=== PATIENT | male | born 1975 | race Caucasian/White ===

== ENCOUNTER 2017-08-21 17:27 | Emergency (ER) | payer SELFPAY ==
[~2017-08-21] VITALS: Ht 182.9 cm; Wt 100.0 kg
[2017-08-21] MEDS ORDERED: SODIUM CHLOR 0.9% 1000 ML INJ 1,000 ML IV ONE (17:38)
[2017-08-21 17:41] VITALS: BP 125/79; PULSE 79; RESP 18; TEMP 97.6; O2SAT 95; O2SAT 96
[2017-08-21] MEDS ORDERED: SODIUM CHLORIDE 0.9% FLUSH 10 ML FLUSH IVF PRN (17:45)
--- NOTE | 2017-08-21 18:03 | PD ---
HPI Chief Complaint: Syncope/Near-Syncope Time Seen by Provider: 17:37 Travel History International Travel<30 days: No Contact w/Intl Traveler<30days: No Traveled to known affect area: No History of Present Illness HPI Patient is a 42-year-old male presenting to emergency department for evaluation after a syncopal episode. Patient states that he ate lunch around noon, he went into the [place] to lay with short shorts on to get some sun, he subsequently drank a pint of vodka while he was laying in the sun. He went home and told his girlfriend he felt like he needed something to eat, she told him to make it himself so when he went into the kitchen he stated he felt dizzy and lightheaded and subsequently passed out. Patient states while he was drinking vodka he also had some Gatorade. He reports that he has had syncopal episode a few years ago under the same circumstances. Patient consumes moderate amount of alcohol routinely. He has no physical complaints at this time. He denies any head injury, nausea, abdominal pain, shortness of breath, chest pain. Patient has a history of hypertension and is on current medications currently for this. PFS Past Medical History Anxiety: Yes Hypertension: Yes ?: Not Social History Alcohol Use: Yes (1 pint of vodka once a week ) Tobacco Use: Yes (0.5 pack once a week) Substance Use: Yes (THC on occasion) Allergies-Medications (Allergen,Severity, Reaction): Coded Allergies: Penicillins (Verified Allergy, Unknown, 08/21/17) Reported Meds & Prescriptions Reported Meds & Active Scripts Active Reported Flexeril (Cyclobenzaprine HCl) 10 Mg Tab 10 Mg PO TID Wellbutrin Xl 24 HR (Bupropion HCl) 150 Mg Tab 150 Mg PO DAILY Propranolol (Propranolol HCl) 20 Mg Tab 20 Mg PO Q12HR Amlodipine (Amlodipine Besylate) 5 Mg Tab 5 Mg PO DAILY Review of Systems Except as stated in HPI: all other systems reviewed are Neg General / Constitutional: No: Fever, Chills Eyes: No: Blurred Vision Cardiovascular: No: Chest Pain or Discomfort Respiratory: No: Shortness of Breath Gastrointestinal: No: Nausea, Abdominal Pain Neurologic: Positive: Dizziness, Syncope Physical Exam Narrative GENERAL: Well-developed, well-nourished, alert male. Presenting in no acute distress. SKIN: Warm and dry. HEAD: Atraumatic. Normocephalic. EYES: Pupils equal and round. No scleral icterus. No injection or drainage. ENT: No nasal bleeding or discharge. Mucous membranes pink and moist. NECK: Trachea midline. No JVD. CARDIOVASCULAR: Regular rate and rhythm. RESPIRATORY: No accessory muscle use. Clear to auscultation. Breath sounds equal bilaterally. GASTROINTESTINAL: Abdomen soft, non-tender, nondistended. Hepatic and splenic margins not palpable. MUSCULOSKELETAL: Extremities without clubbing, cyanosis, or edema. No obvious deformities. NEUROLOGICAL: Awake and alert. No obvious cranial nerve deficits. Motor grossly within normal limits. Five out of 5 muscle strength in the arms and legs. Normal speech. PSYCHIATRIC: Appropriate mood and affect; insight and judgment normal. Data Data Last Documented VS Vital Signs Date Time Temp Pulse Resp B/P (MAP) Pulse Ox O2 Delivery O2 Flow Rate FiO2 08/21/17 18:32 80 18 114/76 (89) 90 18 122/82 (95) 90 18 112/78 (89) 08/21/17 17:44 96 Room Air 08/21/17 17:41 97.6 Orders Orders Electrocardiogram (08/21/17 17:38) Complete Blood Count With Diff (08/21/17 17:38) Comprehensive Metabolic Panel (08/21/17 17:38) Magnesium (Mg) (08/21/17 17:38) Ckmb (Isoenzyme) Profile (08/21/17 17:38) Troponin I (08/21/17 17:38) Chest, Single Ap (08/21/17 17:38) Blood Glucose (08/21/17 17:38) Ecg Monitoring (08/21/17 17:38) Iv Access Insert/Monitor (08/21/17 17:38) Oximetry (08/21/17 17:38) Sodium Chloride 0.9% Flush (Ns Flush) (08/21/17 17:45) Sodium Chlor 0.9% 1000 Ml Inj (Ns 1000 M (08/21/17 17:38) Orthostatic Vital Signs (08/21/17 17:38) CKMB (08/21/17 17:48) CKMB% (08/21/17 17:48) Labs Laboratory Tests Test 08/21/17 17:48 White Blood Count 8.3 TH/MM3 Red Blood Count 4.83 MIL/MM3 Hemoglobin 15.0 GM/DL Hematocrit 43.6 % Mean Corpuscular Volume 90.2 FL Mean Corpuscular Hemoglobin 31.0 PG Mean Corpuscular Hemoglobin Concent 34.4 % Red Cell Distribution Width 13.2 % Platelet Count 205 TH/MM3 Mean Platelet Volume 8.7 FL Neutrophils (%) (Auto) 62.6 % Lymphocytes (%) (Auto) 28.0 % Monocytes (%) (Auto) 7.4 % Eosinophils (%) (Auto) 1.5 % Basophils (%) (Auto) 0.5 % Neutrophils # (Auto) 5.2 TH/MM3 Lymphocytes # (Auto) 2.3 TH/MM3 Monocytes # (Auto) 0.6 TH/MM3 Eosinophils # (Auto) 0.1 TH/MM3 Basophils # (Auto) 0.0 TH/MM3 CBC Comment DIFF FINAL Differential Comment Blood Urea Nitrogen 23 MG/DL Creatinine 1.23 MG/DL Random Glucose 92 MG/DL Total Protein 7.5 GM/DL Albumin 4.3 GM/DL Calcium Level 8.3 MG/DL Magnesium Level 2.5 MG/DL Alkaline Phosphatase 64 U/L Aspartate Amino Transf (AST/SGOT) 33 U/L Alanine Aminotransferase (ALT/SGPT) 24 U/L Total Bilirubin 0.6 MG/DL Sodium Level 140 MEQ/L Potassium Level 4.1 MEQ/L Chloride Level 107 MEQ/L Carbon Dioxide Level 21.2 MEQ/L Anion Gap 12 MEQ/L Estimat Glomerular Filtration Rate 65 ML/MIN Total Creatine Kinase 201 U/L Creatine Kinase MB 2.6 NG/ML Troponin I LESS THAN 0.02 NG/ML MDM Medical Decision Making Medical Screen Exam Complete: Yes Emergency Medical Condition: Yes Medical Record Reviewed: Yes Interpretation(s) Vital Signs Date Time Temp Pulse Resp B/P (MAP) Pulse Ox O2 Delivery O2 Flow Rate FiO2 08/21/17 17:44 82 18 96 Room Air 08/21/17 17:41 97.6 79 18 125/79 (94) 95 Room Air 08/21/17 17:41 18 96 Room Air Differential Diagnosis Cardiac arrhythmia versus metabolic abnormality versus heat exhaustion versus vasovagal episode versus hypoglycemia versus other Narrative Course Patient is a 42-year-old male presenting via EMS for evaluation of a syncopal episode. Patient has been drinking alcohol while laying in the sun. Patient arrives alert and oriented, his vital signs are stable. Labs and imaging ordered and pending. Initial EKG shows normal sinus rhythm with a ventricular rate of 88. IV fluids ordered. Labs reviewed, no acute finding identified. Chest x-ray shows no acute disease. Orthostatic vital signs are negative. Patient will be discharged home , is advised to avoid drinking alcohol in the heat. He was encouraged to maintain adequate fluid intake. He was encouraged return to emergency department for any new or worsening symptoms. Patient verbalized understanding. Patient is stable for discharge. Diagnosis Primary Impression: Heat syncope, initial encounter Additional Impression: Alcohol use Referrals: Primary Care Physician [facility] Patient Instructions: Alcohol Intoxication (ED), General Instructions, Syncope (ED) Additional Instructions: Avoid excessive intake of alcohol Maintain adequate fluid intake Eat regular meals Follow-up with Liam Ponce Follow-up with your primary doctor Return to emergency department for any new worsening symptoms Med/Other Pt SpecificInfo: No Change to Meds Disposition: 01 DISCHARGE HOME Condition: Stable Devorah Pavon Aug 21, 2017 18:03
[2017-08-21 18:06] LABS: AUTOMATED NEUTROPHIL # 5.2 TH/MM3 (1.8-7.7); BASOPHIL % 0.5 % (0.0-2.0); EOSINOPHIL # 0.1 TH/MM3 (0-0.4); EOSINOPHIL % 1.5 % (0.0-4.0); HEMATOCRIT 43.6 % (39.0-51.0); LYMPHOCYTE # 2.3 TH/MM3 (1.0-4.8); MEAN CELL VOLUME 90.2 FL (80.0-100.0); MEAN CORPUSCULAR HGB CONC 34.4 % (32.0-36.0); MEAN PLATELET VOLUME 8.7 FL (7.0-11.0); MONO % 7.4 % (0.0-8.0); MONOCYTE # 0.6 TH/MM3 (0-0.9); NEUT % 62.6 % (16.0-70.0); PLATELET COUNT 205 TH/MM3 (150-450); RED BLOOD COUNT 4.83 MIL/MM3 (4.50-5.90); RED CELL DISTRIBUTION WIDTH 13.2 % (11.6-17.2); WHITE BLOOD COUNT 8.3 TH/MM3 (4.0-11.0)
--- NOTE | 2017-08-21 18:06 | RADRPT ---
EXAM DATE: 08/21/2017 5:57 PM EDT AGE/SEX: 42 years / Male INDICATIONS: Syncope CLINICAL DATA: This is the patient's initial encounter. Patient reports that signs and symptoms have been present for 1 day and indicates a pain score of 0/10. MEDICAL/SURGICAL HISTORY: None. None. COMPARISON: No prior exams available for comparison. FINDINGS: A single AP view of the chest demonstrates the lungs to be symmetrically aerated without evidence of mass, infiltrate or effusion. The cardiomediastinal contours are unremarkable. Osseous structures a re intact. CONCLUSION: No acute findings. Minimal linear scarring or atelectasis. Electronically signed by: Sai Galindo MD 08/21/2017 6:05 PM EDT
[2017-08-21] MEDS ORDERED: CYCL10TA PO (18:07)
[2017-08-21] MEDS ORDERED: AMLO5TAB2 PO (18:07)
[2017-08-21] MEDS ORDERED: PROP20TA3 PO (18:07)
[2017-08-21] MEDS ORDERED: BUPR150XL PO (18:07)
[2017-08-21 18:32] VITALS: BP_SYST 112; BP_SYST 114; BP_SYST 122; BP_DIAS 76; BP_DIAS 78; BP_DIAS 82; RESP 18
[2017-08-21 18:33] LABS: ALBUMIN 4.3 GM/DL (3.4-5.0); ALKALINE PHOSPHATASE 64 U/L (45-117); ALT (GPT) 24 U/L (12-78); AST (GOT) 33 U/L (15-37); BICARBONATE 21.2 MEQ/L (21.0-32.0); BLOOD UREA NITROGEN 23 MG/DL (7-18); CALCIUM 8.3 MG/DL (8.5-10.1); CHLORIDE 107 MEQ/L (98-107); CREATININE 1.23 MG/DL (0.60-1.30); GLOMERULAR FILTRATION RATE 65 ML/MIN (>89); GLUCOSE,RANDOM 92 MG/DL (74-106); MAGNESIUM 2.5 MG/DL (1.5-2.5); SODIUM (NA) 140 MEQ/L (136-145); TOTAL BILIRUBIN ADULT 0.6 MG/DL (0.2-1.0); TOTAL PROTEIN 7.5 GM/DL (6.4-8.2); TROPONIN I LESS THAN 0.02 NG/ML (0.02-0.05)
--- NOTE | 2017-08-21 18:55 | PD ---
Physical Exam Date Seen by Provider: Aug 21, 2017 Narrative This patient is being seen by NITZA Montez. He reports that he has been drinking all day out in the sun. He came home this evening and passed out. He was brought in to us for evaluation of syncope. Data Data Last Documented VS Vital Signs Date Time Temp Pulse Resp B/P (MAP) Pulse Ox O2 Delivery O2 Flow Rate FiO2 08/21/17 18:32 80 18 114/76 (89) 90 18 122/82 (95) 90 18 112/78 (89) 08/21/17 17:44 96 Room Air 08/21/17 17:41 97.6 Orders Orders Electrocardiogram (08/21/17 17:38) Complete Blood Count With Diff (08/21/17 17:38) Comprehensive Metabolic Panel (08/21/17 17:38) Magnesium (Mg) (08/21/17 17:38) Ckmb (Isoenzyme) Profile (08/21/17 17:38) Troponin I (08/21/17 17:38) Chest, Single Ap (08/21/17 17:38) Blood Glucose (08/21/17 17:38) Ecg Monitoring (08/21/17 17:38) Iv Access Insert/Monitor (08/21/17 17:38) Oximetry (08/21/17 17:38) Sodium Chloride 0.9% Flush (Ns Flush) (08/21/17 17:45) Sodium Chlor 0.9% 1000 Ml Inj (Ns 1000 M (08/21/17 17:38) Orthostatic Vital Signs (08/21/17 17:38) CKMB (08/21/17 17:48) CKMB% (08/21/17 17:48) Labs Laboratory Tests Test 08/21/17 17:48 White Blood Count 8.3 TH/MM3 Red Blood Count 4.83 MIL/MM3 Hemoglobin 15.0 GM/DL Hematocrit 43.6 % Mean Corpuscular Volume 90.2 FL Mean Corpuscular Hemoglobin 31.0 PG Mean Corpuscular Hemoglobin Concent 34.4 % Red Cell Distribution Width 13.2 % Platelet Count 205 TH/MM3 Mean Platelet Volume 8.7 FL Neutrophils (%) (Auto) 62.6 % Lymphocytes (%) (Auto) 28.0 % Monocytes (%) (Auto) 7.4 % Eosinophils (%) (Auto) 1.5 % Basophils (%) (Auto) 0.5 % Neutrophils # (Auto) 5.2 TH/MM3 Lymphocytes # (Auto) 2.3 TH/MM3 Monocytes # (Auto) 0.6 TH/MM3 Eosinophils # (Auto) 0.1 TH/MM3 Basophils # (Auto) 0.0 TH/MM3 CBC Comment DIFF FINAL Differential Comment Blood Urea Nitrogen 23 MG/DL Creatinine 1.23 MG/DL Random Glucose 92 MG/DL Total Protein 7.5 GM/DL Albumin 4.3 GM/DL Calcium Level 8.3 MG/DL Magnesium Level 2.5 MG/DL Alkaline Phosphatase 64 U/L Aspartate Amino Transf (AST/SGOT) 33 U/L Alanine Aminotransferase (ALT/SGPT) 24 U/L Total Bilirubin 0.6 MG/DL Sodium Level 140 MEQ/L Potassium Level 4.1 MEQ/L Chloride Level 107 MEQ/L Carbon Dioxide Level 21.2 MEQ/L Anion Gap 12 MEQ/L Estimat Glomerular Filtration Rate 65 ML/MIN Total Creatine Kinase 201 U/L Creatine Kinase MB 2.6 NG/ML Troponin I LESS THAN 0.02 NG/ML MDM Supervised Visit with MARIANA: Yes Interpretation(s) EKG shows a normal sinus rhythm with Narrative Course I, Dr. Brady, have reviewed the advance practice practitioner's documentation and am in agreement, met with the patient face to face, made the diagnosis, and the medical decision making was done by me. *My assessment and Findings: The patient is now lucid with no lateralizing neurological complaints. CBC & BMP Diagram 08/21/17 17:48 Total Protein 7.5, Albumin 4.3, Calcium Level 8.3 L, Magnesium Level 2.5, Alkaline Phosphatase 64, Aspartate Amino Transf (AST/SGOT) 33, Alanine Aminotransferase (ALT/SGPT) 24, Total Bilirubin 0.6 Troponin less than 0.02 Please see Devorah Morin NP's note for a more detailed H&P, final diagnosis and disposition Anu Brady MD Aug 21, 2017 18:55
--- NOTE | 2017-08-22 16:46 | EKG ---
Date Performed: 08/21/2017 Time Performed: 17:34:47 PTAGE: 42 years EKG: Sinus rhythm NORMAL ECG INTERPRETATION BASED ON A DEFAULT AGE OF 41 YEARS NO PREVIOUS TRACING DOCTOR: Rylie Longoria Interpretating Date/Time 08/22/2017 16:44:24
== END 2017-08-21 20:22 | disposition home or self-care (01) ==
LOC: NEPC 17:27
DX: T67.1XXA Heat syncope, initial encounter (principal); F10.10 Alcohol abuse, uncomplicated; I10 Essential (primary) hypertension; F41.9 Anxiety disorder, unspecified; F17.210 Nicotine dependence, cigarettes, uncomplicated; Z88.0 Allergy status to penicillin; Z79.899 Other long term (current) drug therapy
CPT/HCPCS: 71045; 80053; 82550; 82552; 83735; 84484; 85025; 93005; 99285; J7030